=== PATIENT | male | born 1960 | race Caucasian/White ===

== ENCOUNTER → 2024-07-05 | Outpatient (CLI) | payer OTHER, SELFPAY ==
--- NOTE | 2024-07-05 14:51 | ECHOD_ITS ---
Reason For Study Reason For Study: HTN Procedure This was a 2D Doppler, Color Flow transthoracic echocardiogram. Exam performed in department. Left Ventricle Normal LV size. Mild concentric left ventricular hypertrophy. Left ventricular systolic function is normal. The left ventricular ejection fraction is 55 %. No regional wall motion abnormalities noted. Right Ventricle Normal RV size. Normal systolic function. Atria Normal left atrium. Normal right atrium. Mitral Valve Normal mitral valve. Tricuspid Valve Normal tricuspid valve. Aortic Valve Trisinus/trileaflet aortic valve. Pulmonic Valve Normal pulmonic valve. Great Vessels Normal aortic root. The pulmonary artery is normal size. Inferior vena cava collapse with respiration. Pericardium/Pleural No pericardial effusion. MMode/2D Measurements & Calculations LVIDd: 5.8 cm IVSd: 1.2 cm LVOT diam: 2.0 cm LVIDs: 4.2 cm LVPWd: 1.3 cm LVOT area: 3.2 cm2 RVDd: 3.6 cm FS: 27.1 % Ao root diam: 3.5 cm LAV(MOD-sp2): 62.0 ml LVAd ap4: 32.2 cm2 LVLd ap4: 7.9 cm EDV(MOD-sp4): 110.0 ml EDV(sp4-el): 112.2 ml LVAs ap4: 20.9 cm2 LVLs ap4: 7.3 cm ESV(MOD-sp4): 52.1 ml ESV(sp4-el): 50.8 ml EF(MOD-sp4): 52.6 % EF(sp4-el): 54.7 % SV(MOD-sp4): 57.9 ml SV(sp4-el): 61.4 ml LA A4 area: 21.4 cm2 SI(MOD-sp4): 24.9 ml/m2 RA A4 area: 11.5 cm2 Time Measurements MV dec time: 0.17 sec Doppler Measurements & Calculations MV E max lyndon: 105.5 cm/sec Lat Peak E' Lyndon: 14.1 cm/sec Med Peak E' Lyndon: 8.1 cm/sec MV A max lyndon: 94.3 cm/sec E/E' lat: 7.5 E/E' med: 13.1 MV E/A: 1.1 MV V2 max: 108.7 cm/sec Ao V2 max: 181.3 cm/sec MV max P.7 mmHg MV dec slope: 625.5 cm/sec2 Ao max P.2 mmHg MV V2 mean: 74.1 cm/sec Ao V2 mean: 123.3 cm/sec MV mean P.4 mmHg Ao mean P.9 mmHg MV V2 VTI: 40.1 cm Ao V2 VTI: 40.3 cm AV (velocity ratio): 0.78 MVA(VTI): 2.5 cm2 JOSE MANUEL(I,D): 2.5 cm2 JOSE MNAUEL(V,D): 2.3 cm2 LV V1 max: 130.0 cm/sec SV(LVOT): 100.0 ml PA V2 max: 116.7 cm/sec LV V1 max P.8 mmHg PA V2 mean: 83.9 cm/sec LV V1 mean P.9 mmHg LV V1 mean: 91.7 cm/sec LV V1 VTI: 31.5 cm ECHO/Echo Complete Interpretation Summary Normal LV size. Left ventricular systolic function is normal. The left ventricular ejection fraction is 55 %. Mild concentric left ventricular hypertrophy. Ordering Physician: Richard Orellana Referring Physician: Richard Orellana Performed By: Cristal Nolan RCS
== END | disposition home or self-care (01) ==
LOC: CVS 14:50
PROVIDERS: PCP Family Medicine; Referring Provider Internal Medicine Cardiovascular Disease; Visit Provider Internal Medicine Cardiovascular Disease
DX: I10 Essential (primary) hypertension (principal)
CPT/HCPCS: 93306

== ENCOUNTER → 2024-12-06 | Outpatient (CLI) | payer OTHER, SELFPAY ==
[2024-12-06 15:19] LABS: AST(SGOT) 25 U/L (<=37); Alanine Aminotransfer ALT/SGPT 24 U/L (<=46); Albumin, Serum 4.6 g/dL (3.4-4.8); Alkaline Phosphatase 74 U/L (40-129); Bilirubin, Direct 0.22 mg/dL (0.00-0.30); Cholesterol 112 mg/dL (<=200); Globulin 2.6 g/dL (2.2-4.2); Low Density Lipoprotein Calc. 42 mg/dL; Triglycerides 181 mg/dL; Very Low Density Lipoprotein 36 mg/dL (5-40); cholesterol:hdl ratio screen 3.29
== END | disposition home or self-care (01) ==
LOC: LAB 14:02
PROVIDERS: PCP Family Medicine; Referring Provider Nurse Practitioner Family; Visit Provider Nurse Practitioner Family
DX: I10 Essential (primary) hypertension (principal); E11.9 Type 2 diabetes mellitus without complications; E78.5 Hyperlipidemia, unspecified; Z82.49 Family history of ischemic heart disease and other diseases of the circulatory system
CPT/HCPCS: 36415; 80061; 80076